=== PATIENT | female | born 1980 | race African-American/Black ===

== ENCOUNTER 2024-01-27 16:12 | Emergency (ER) | payer BC, OTHER ==
[~2024-01-27] VITALS: Ht 162.6 cm; Wt 114.0 kg
[2024-01-27 16:16] VITALS: BP 144/107; PULSE 76; RESP 18; TEMP 98.6; O2SAT 100
[2024-01-27] MEDS ORDERED: IBUPROFEN 600MG TABLET PO ONE (17:45)
[2024-01-27] MEDS ORDERED: IBUPROFEN 600MG TABLET PO NR (21:15)
== END 2024-01-27 21:22 | disposition home or self-care (01) ==
LOC: ER 16:12
DX: S82.841A Displaced bimalleolar fracture of right lower leg, initial encounter for closed fracture (principal); W18.39XA Other fall on same level, initial encounter; Y93.89 Activity, other specified; Y92.89 Other specified places as the place of occurrence of the external cause; Y99.8 Other external cause status
CPT/HCPCS: 73610; 29515; 99283; Z7610